=== PATIENT | male | born 1965 | race Caucasian/White ===

== ENCOUNTER 2017-03-13 07:23 | Observation (INO) | payer BC ==
[~2017-03-13] VITALS: Ht 172.7 cm; Wt 94.0 kg
[~2017-03-13 07:23] MED LIST: HYDROCODON-ACE1 EAC7 PO; MOTRIN600 MG PO
[2017-03-13 08:51] LABS: EOSINOPHIL (%) 4.2 % (0-5); EOSINOPHIL COUNT 0.2 K/uL (0-0.3); HEMATOCRIT 40.8 % (38.0-50.0); IMMATURE GRANULOCYTE (%) 0.2 % (0.0-0.7); INSTRUMENT ABS NEUTROPHIL CT 2.4 K/uL; LYMPHOCYTE COUNT 1.7 K/uL (1.0-2.8); MCH 31.3 PG (29.0-34.0); MCHC 35.5 G/DL (30.0-36.0); MCV 88.1 FL (86-99); MEAN PLAT.VOLUME 10.9 uM^3 (9.0-12.4); MONOCYTE (%) 8.8 % (3-12); MONOCYTE COUNT 0.4 K/uL (0-0.8); NEUTROPHIL (%) 50.4 % (45-76); NEUTROPHIL COUNT 2.4 K/uL (1.8-6.4); PLATELET COUNT 194 K/uL (156-360); RBC DIS.WIDTH-CV 12.5 % (11.8-14.6); RBC DIS.WIDTH-SD 40.3 % (39-53); RED BLOOD COUNT 4.63 M/uL (4.00-5.50); WHITE BLOOD COUNT 4.8 K/uL (4.1-10.2)
[2017-03-13 09:12] LABS: TROP-I INTERPRETATION NEGATIVE; TROPONIN-I < 0.01 ng/mL (0.0-0.30)
[2017-03-13 09:36] LABS: ANION GAP 8 MEQ/L (2-14); CHLORIDE 106 MEQ/L (99-109); CREATINE KINASE 85 IU/L (1-294); GFR ESTIMATE (CALCULATED) > 59 mL/min/; GLUCOSE 104 mg/dL (70-99); POTASSIUM 3.9 MEQ/L (3.7-5.4); SAMPLE HEMOLYSIS CHECK 2; SAMPLE ICTERIC CHECK 0; SAMPLE LIPEMIA CHECK 2; SODIUM 140 MEQ/L (136-147); UREA NITROGEN (BUN) 13 mg/dL (9-23)
[2017-03-13 13:43] VITALS: BP 144/83
[2017-03-13] MEDS ORDERED: LIPITOR20 MG PO (14:58)
[2017-03-13] MEDS ORDERED: DULERA 100 MCG/13 GM IH (15:00)
[2017-03-13 15:04] LABS: D-DIMER ELISA 0.19 mg/L FEU (< 0.57)
[2017-03-13] MEDS ORDERED: PROAIR HFA8.5 GM IH (15:04)
[2017-03-13] MEDS ORDERED: IMITREX50 MG PO (15:06)
[2017-03-13 15:10] LABS: TROP-I INTERPRETATION NEGATIVE; TROPONIN-I < 0.01 ng/mL (0.0-0.30)
[2017-03-13 15:43] LABS: HDL CHOLESTEROL 33 MG/DL (Desirable>=40); LDL CHOLESTEROL 55 mg/dL (Desirable<100); NON-HDL CHOLESTEROL 109 mg/dL (Desirable<160); TOTAL CHOLESTEROL 142 mg/dL (Desirable<200); TRIGLYCERIDES 271 MG/DL (Normal: <150)
[2017-03-13 15:53] VITALS: BP 120/76
[2017-03-13] MEDS ORDERED: FLONASE SENSIM9.9 ML BOTH NARES (18:12)
[2017-03-13 19:38] VITALS: BP 138/82
[2017-03-13 21:53] LABS: TROP-I INTERPRETATION NEGATIVE; TROPONIN-I < 0.01 ng/mL (0.0-0.30)
[2017-03-14 10:02] LABS: Estimated Average Glucose 111 mg/dL (70-123); HEMOGLOBIN A1c (GLYCOHEMOGLOB) 5.5 % HGB (Below 5.7)
== END 2017-03-13 22:19 | disposition home or self-care (01) ==
LOC: EME 07:23 → EDOF 12:40 → 5WEST 13:32
PROVIDERS: Emergency Medicine; Nurse Practitioner Adult Health
DX: R07.89 Other chest pain (principal); E78.5 Hyperlipidemia, unspecified; J45.909 Unspecified asthma, uncomplicated
CPT/HCPCS: 71010; 80048; 80061; 82550; 83036; 84484; 85025; 85379; 93005; 99281; 99285; G0378; J2270